=== PATIENT | male | born 1955 | race Caucasian/White ===

== ENCOUNTER 2017-10-17 11:34 | Emergency (ER) | payer BC, OTHER ==
[2017-10-17] MEDS ORDERED: Sodium Chloride 0.9% 1,000 ML IV ONE ×2 (11:56→14:42)
[2017-10-17] MEDS ORDERED: cefTRIAXone 2 GM Vial IVPUSH SCH (12:00)
[2017-10-17] MEDS ORDERED: Azithromycin 500 MG in Sodium Chloride 0.9% 250 ML IV SCH (12:00)
[2017-10-17] MEDS ORDERED: cefTRIAXone 2 GM in Sodium Chloride 0.9% 100 ML IV ONE (12:04)
--- NOTE | 2017-10-17 12:07 | EDM.PDOC ---
ED HPI GENERAL MEDICAL PROBLEM - General Chief Complaint: Respiratory Problem Stated Complaint: SENT BY CLINIC PNEUMONIA Time Seen by Provider: 10/17/17 11:45 Source of Information: Reports: Patient, Family (), Other ([facility] records from clinic visit this morning) History Limitations: Reports: No Limitations - History of Present Illness INITIAL COMMENTS - FREE TEXT/NARRATIVE: Greg is a pleasant 62yo male presents ambulatory with his today for 7 day hx of worsening cough, F/C/S, decreased appetite, headache and myalgias. He was seen at clinic 2 days ago, negative influenza screen at that time, treat symptomatically. Symptoms worsened Wednesday with worsening of SOB, cough, fatigue. He is taking ibuprofen which is helping with fevers/myalgias. He has no appetite. No sick contacts that he is aware of. He did not get flu shot this year, never had a PNA vaccine. He is a rancher, non-smoker. Review of [facility] records show temp of 100.4, HR 98, b/p 111/70 and O2sat of 91%. Labs done at 1043 this am show normal WBC at 7.3 with bandemia present, 12% bands, normal h&h and plt. Influenza screening done but not resulted. No other labs. CXR is pushed to our system showing bilateral pneumonia with large inflitrate to RML noted on lateral view. This is reviewed with Dr. Whitfield. O2Sats in ED are 89-90%. PCP is Dr. Rodriges with [facility]. Duration: Day(s): Location: Reports: Chest Quality: Reports: Other (sensation of SOB and heaviness) Improves with: Reports: Medication (ibuprofen) Worsens with: Reports: Breathing, Cold Therapy, Movement Associated Symptoms: Reports: Cough, cough w sputum (minimal), Diaphoresis, Fever/Chills, Headaches, Loss of Appetite, Malaise, Shortness of Breath, Weakness. Denies: Chest Pain, Nausea/Vomiting, Rash, Syncope Treatments [employer]: Reports: NSAIDS - Related Data Allergies Allergy/AdvReac Type Severity Reaction Status Date / Time No Known Allergies Allergy Verified 10/17/17 11:43 Home Meds: Home Meds [place]-3/DHA/Epa/Fish Oil [Fish Oil 500 MG Softgel] 1,000 mg PO DAILY 10/17/17 [ History] ED ROS GENERAL - Review of Systems Review Of Systems: See Below Constitutional: Reports: Fever, Chills, Malaise, Weakness, Fatigue, Diaphoresis , Decreased Appetite HEENT: Reports: Rhinitis, Throat Pain Respiratory: Reports: Shortness of Breath, Cough, Sputum (minimal). Denies: Wheezing, Pleuritic Chest Pain, Hemoptysis Cardiovascular: Reports: Dyspnea on Exertion (worsening since Wednesday). Denies: Chest Pain, Edema Endocrine: Reports: Fatigue GI/Abdominal: Reports: Decreased Appetite. Denies: Abdominal Pain, Constipation , Diarrhea, Nausea, Vomiting : Reports: No Symptoms Musculoskeletal: Reports: Other (teneralized myalgias) Skin: Denies: Rash Neurological: Reports: Headache. Denies: Confusion, Dizziness Psychiatric: Reports: No Symptoms Hematologic/Lymphatic: Reports: No Symptoms ED EXAM, GENERAL - Physical Exam Exam: See Below Exam Limited By: No Limitations General Appearance: Alert, WD/WN, No Apparent Distress, Other (appears generally fatigued and mildly ill in appearance) Eye Exam: Bilateral Eye: EOMI, PERRL Ears: Normal External Exam, Hearing Grossly Normal Nose: Normal Inspection Throat/Mouth: Normal Inspection, Normal Lips, Normal Teeth, Normal Voice, No Airway Compromise Head: Atraumatic, Normocephalic Neck: Normal Inspection, Other (mild AC LAD) Respiratory/Chest: Decreased Breath Sounds (bilateral mid to lower lobes), Other (poor insp effort- hurts with deep breaths). No: No Respiratory Distress , Crackles, Rales, Rhonchi, Wheezing, Accessory Muscle Use, Prolonged Expiration Cardiovascular: Normal Peripheral Pulses, Regular Rate, Rhythm, No Edema, No Murmur Peripheral Pulses: 2+: Radial (L), Radial (R), Posterior Tibial (L), Posterior Tibial (R) GI/Abdominal: Normal Bowel Sounds, Soft, Non-Tender. No: Guarding, Rigid, Rebound, Tender (Male) Exam: Deferred Rectal (Males) Exam: Deferred Extremities: Normal Inspection, Normal Capillary Refill Neurological: Alert, Oriented, CN II-XII Intact, Normal Cognition, No Motor/ Sensory Deficits Psychiatric: Normal Affect, Normal Mood Skin Exam: Warm, Dry, Intact, Other (warm to touch) Course - Vital Signs Text/Narrative:: during initial visit when patient not on oxygen, saturations were 88-89% on RA; 2L/NC applied with 96% saturations. Labs returned with sodium slightly low at 134, glucose at 128, total bili 1.5- rest of LFT's WNL. CRP is up at 28.8, Lactic acid 1.4 Mycoplasma returned negative, strep pneumo antigen is pending. Blood cultures pending, Resp viral panel pending Unfortunately med/surg unit is on diversion. Charge nurse did attempt to find bed placement for patient but no beds available. Reviewed this with patient and ; they are willing to be transferred to [place] for further treatment of bilat CAP with hypoxia. Call placed to [facility], Dr. Quintanilla is in agreement to accept patient for dx of CAP. Patient will be transferred via ambulance with supplemental oxygen and IVF running. IV abx of rocephin and zithromax given while in ED. Last Recorded V/S: Last Vital Signs Temp 98.0 F 10/17/17 11:40 Pulse 92 10/17/17 11:40 Resp 32 H 10/17/17 11:40 BP 122/71 10/17/17 11:40 Pulse Ox 95 10/17/17 15:06 - Orders/Labs/Meds Orders: Active Orders 24 hr Category Date Time Status RT Aerosol Therapy [RC] ASDIRECTED Care 10/17/17 12:11 Active RT Aerosol Therapy [RC] ASDIRECTED Care 10/17/17 15:06 Ordered CULTURE BLOOD [BC] Stat Lab 10/17/17 12:24 Received CULTURE BLOOD [BC] Stat Lab 10/17/17 12:40 Received RESPIRATORY PANEL BY PCR [MREF] Stat Lab 10/17/17 13:50 Received STREP PNEUMONIAE ANTIGEN [MREF] Stat Lab 10/17/17 13:35 Received Azithromycin [Zithromax] 500 mg Med 10/17/17 12:00 Active Sodium Chloride 0.9% [Normal Saline] 250 ml IV Q24H Sodium Chloride 0.9% [Normal Saline] 1,000 ml Med 10/17/17 14:42 Active IV ONETIME cefTRIAXone [Rocephin] 2 gm Med 10/17/17 12:15 Active Sodium Chloride 0.9% [Normal Saline] 100 ml IV ONETIME Blood Culture x2 Reflex Set [OM.PC] Stat Oth 10/17/17 11:57 Ordered Medication Orders Azithromycin 500 mg/ Sodium (Chloride) 250 mls @ 250 mls/hr IV Q24H CASSIE Last Admin: 10/17/17 13:31 Dose: 250 mls/hr Ceftriaxone Sodium 2 gm/ (Sodium Chloride) 100 mls @ 200 mls/hr IV ONETIME CASSIE Last Admin: 10/17/17 12:45 Dose: 200 mls/hr Sodium Chloride (Normal Saline) 1,000 mls @ 999 mls/hr IV ONETIME ONE Stop: 10/17/17 15:42 Last Admin: 10/17/17 14:49 Dose: 999 mls/hr Labs: Laboratory Tests 10/17/17 10/17/17 Range/Units 12:13 12:13 Sodium 134 L (136-145) mEq/L Potassium 4.3 (3.5-5.1) mEq/L Chloride 98 (98-107) mEq/L Carbon Dioxide 26 (21-32) mEq/L Anion Gap 14.3 (5-15) BUN 15 (7-18) mg/dL Creatinine 1.0 (0.7-1.3) mg/dL Est Cr Clr Drug Dosing 85.14 mL/min Estimated GFR (MDRD) > 60 (>60) mL/min BUN/Creatinine Ratio 15.0 (14-18) Glucose 128 H (80-115) mg/dL Lactic Acid 1.4 (0.4-2.0) mmol/L Calcium 9.1 (8.5-10.1) mg/dL Total Bilirubin 1.5 H (0.2-1.0) mg/dL AST 18 (15-37) U/L ALT 20 (16-63) U/L Alkaline Phosphatase 58 (46-116) U/L C-Reactive Protein 28.8 H* (<1.0) mg/dL Total Protein 6.7 (6.4-8.2) g/dl Albumin 2.8 L (3.4-5.0) g/dl Globulin 3.9 gm/dL Albumin/Globulin Ratio 0.7 L (1-2) Mycoplasma pneumon IgM Negative (NEGATIVE) Meds: Medications Generic Name Dose Route Start Last Admin Trade Name Freq PRN Reason Stop Dose Admin Azithromycin 500 mg/ Sodium 250 mls @ 250 mls/hr 10/17/17 12:00 10/17/17 13: 31 Chloride IV 250 mls/hr Q24H CASSIE Administration Ceftriaxone Sodium 2 gm/ 100 mls @ 200 mls/hr 10/17/17 12:15 10/17/17 12:45 Sodium Chloride IV 200 mls/hr ONETIME CASSIE Administration Sodium Chloride 1,000 mls @ 999 mls/hr 10/17/17 14:42 10/17/17 14:49 Normal Saline IV 10/17/17 15:42 999 mls/hr ONETIME ONE Administration Discontinued Medications Generic Name Dose Route Start Last Admin Trade Name Daniel PRN Reason Stop Dose Admin Acetaminophen 650 mg 10/17/17 15:05 10/17/17 15:23 Tylenol PO 10/17/17 15:06 650 mg NOW ONE Administration Albuterol 2.5 mg 10/17/17 12:11 10/17/17 12:20 Proventil Neb Soln NEB 10/17/17 12:12 2.5 mg ONETIME ONE Administration Albuterol 2.5 mg 10/17/17 15:06 10/17/17 15:27 Proventil Neb Soln NEB 10/17/17 15:07 2.5 mg ONETIME ONE Administration Ceftriaxone Sodium 2 gm 10/17/17 12:00 10/17/17 12:04 Rocephin IVPUSH Not Given Q24H CASSIE Guaifenesin 1,200 mg 10/17/17 15:09 10/17/17 15:25 Mucinex PO 10/17/17 15:10 1,200 mg ONETIME ONE Administration Sodium Chloride 1,000 mls @ 999 mls/hr 10/17/17 11:56 10/17/17 12:45 Normal Saline IV 10/17/17 12:56 999 mls/hr ONETIME ONE Administration Ceftriaxone Sodium 2 gm/ 100 mls @ 200 mls/hr 10/17/17 12:04 10/17/17 12:48 Sodium Chloride IV 10/17/17 12:33 Not Given ONETIME ONE Sodium Chloride Confirm 10/17/17 12:16 10/17/17 12:46 Normal Saline Administered 10/17/17 12:17 Not Given Dose 100 mls @ as directed .ROUTE .STK-MED ONE Departure - Departure Time of Disposition: 15:36 Disposition: DC/Tfer to Acute Hospital 02 Condition: Good Clinical Impression: Community acquired pneumonia Qualifiers: Laterality: right Lung location: lower lobe of lung Qualified Code(s): J18.1 - Lobar pneumonia, unspecified organism Pneumonia Qualifiers: Pneumonia type: due to unspecified organism Laterality: bilateral Lung location : lower lobe of lung Qualified Code(s): J18.9 - Pneumonia, unspecified organism - Discharge Information Referrals: Frank Phillips MD [Primary Care Provider] - Forms: ED Department Discharge - My Orders Last 24 Hours: My Active Orders 10/17/17 11:57 Blood Culture x2 Reflex Set [OM.PC] Stat 10/17/17 12:00 Azithromycin [Zithromax] 500 mg Sodium Chloride 0.9% [Normal Saline] 250 ml IV Q24H 10/17/17 12:11 RT Aerosol Therapy [RC] ASDIRECTED 10/17/17 12:15 cefTRIAXone [Rocephin] 2 gm Sodium Chloride 0.9% [Normal Saline] 100 ml IV ONETIME 10/17/17 12:24 CULTURE BLOOD [BC] Stat 10/17/17 12:40 CULTURE BLOOD [BC] Stat 10/17/17 13:35 STREP PNEUMONIAE ANTIGEN [MREF] Stat 10/17/17 13:50 RESPIRATORY PANEL BY PCR [MREF] Stat 10/17/17 14:42 Sodium Chloride 0.9% [Normal Saline] 1,000 ml IV ONETIME 10/17/17 15:06 RT Aerosol Therapy [RC] ASDIRECTED - Assessment/Plan Last 24 Hours: My Active Orders 10/17/17 11:57 Blood Culture x2 Reflex Set [OM.PC] Stat 10/17/17 12:00 Azithromycin [Zithromax] 500 mg Sodium Chloride 0.9% [Normal Saline] 250 ml IV Q24H 10/17/17 12:11 RT Aerosol Therapy [RC] ASDIRECTED 10/17/17 12:15 cefTRIAXone [Rocephin] 2 gm Sodium Chloride 0.9% [Normal Saline] 100 ml IV ONETIME 10/17/17 12:24 CULTURE BLOOD [BC] Stat 10/17/17 12:40 CULTURE BLOOD [BC] Stat 10/17/17 13:35 STREP PNEUMONIAE ANTIGEN [MREF] Stat 10/17/17 13:50 RESPIRATORY PANEL BY PCR [MREF] Stat 10/17/17 14:42 Sodium Chloride 0.9% [Normal Saline] 1,000 ml IV ONETIME 10/17/17 15:06 RT Aerosol Therapy [RC] ASDIRECTED
[2017-10-17] MEDS ORDERED: Albuterol 0.083% 2.5 MG/3 ML Neb Soln NEB ONE ×2 (12:11→15:06)
[2017-10-17] MEDS ORDERED: cefTRIAXone 2 GM in Sodium Chloride 0.9% 100 ML IV SCH (12:15)
[2017-10-17] MEDS ORDERED: Sodium Chloride 0.9% 100 ML ONE (12:16)
[2017-10-17] MEDS ORDERED: Acetaminophen 325 MG Tab PO ONE (15:05)
[2017-10-17] MEDS ORDERED: guaiFENesin 600 MG Tab.ER PO ONE (15:09)
[2017-10-17] MEDS ORDERED: Sodium Chloride 0.9% 1,000 ML ONE (15:55)
== END 2017-10-17 15:55 ==
LOC: JD.ED 11:34
DX: J18.9 Pneumonia, unspecified organism (principal); Z79.899 Other long term (current) drug therapy
CPT/HCPCS: 36415; 80053; 83605; 86140; 86738; 87040; 87070; 87205; 87486; 87581; 87633; 87798; 87899; 94640; 96365; 96366; 96368; 99285; A9270; J0456; J0696; J7030; J7040; J7050; 87077; 87184; 96361

== ENCOUNTER 2023-08-04 06:15 | Day surgery (SDC) | payer MEDICARE, BC ==
[~2023-08-04 06:15] MED LIST: Lactated Ringers 1,000 ML IV SCH; Morphine 8 MG, EPINEPHrine 0.3 MG, Cefuroxime 750 MG, Ketorolac 30 MG, Sodium Chloride ... PRN; Sodium Chloride 0.9% 10 ML Syringe FLUSH PRN; Sodium Chloride 0.9% 10 ML Syringe FLUSH SCH
[2023-08-04] MEDS ORDERED: Propofol 200 MG/20 ML SDV ONE ×3 (06:41→09:11)
[2023-08-04] MEDS ORDERED: Midazolam 1 MG/ML 2 ML SDV ONE (06:44)
[2023-08-04] MEDS ORDERED: Tranexamic Acid 1,000 MG/10 ML Vial ONE (06:47)
[2023-08-04] MEDS ORDERED: Vancomycin 1 GM SDV ONE (06:47)
[2023-08-04] MEDS ORDERED: dexmedeTOMIDine HCl 200 MCG/2 ML SDV ONE (06:59)
[2023-08-04] MEDS ORDERED: Ropivacaine 0.5% 5 MG/ML 30 ML SDV ONE (06:59)
[2023-08-04] MEDS ORDERED: Dexamethasone 4 MG/ML 5 ML MDV ONE (07:02)
[2023-08-04] MEDS ORDERED: EPINEPHrine 1 MG/ML SDV ONE (07:03)
[2023-08-04] MEDS ORDERED: ePHEDrine 50 MG/ML SDV ONE (08:15)
[2023-08-04] MEDS ORDERED: ceFAZolin 2 GM Vial ONE (08:16)
[2023-08-04] MEDS ORDERED: Lidocaine 1% 2 ML ONE (08:16)
[2023-08-04] MEDS ORDERED: HYDROmorphone 0.5 MG/0.5 ML Syringe IVPUSH PRN (08:28)
[2023-08-04] MEDS ORDERED: fentaNYL 100 MCG/2 ML SDV IVPUSH PRN (08:28)
[2023-08-04] MEDS ORDERED: oxyCODONE 5 MG Tab PO SCH (10:22)
[2023-08-04] MEDS ORDERED: Cyclobenzaprine 10 MG Tab PO PRN (10:22)
== END 2023-08-04 12:47 | disposition home or self-care (01) ==
LOC: JD.SDS 06:15
PROVIDERS: ATTEND Orthopaedic Surgery
DX: M17.11 Unilateral primary osteoarthritis, right knee (principal); E78.2 Mixed hyperlipidemia; Z87.891 Personal history of nicotine dependence; Z79.82 Long term (current) use of aspirin; Z79.899 Other long term (current) drug therapy
CPT/HCPCS: 0055T; 27447; 64447; 73560; 97116; 97161; A9270; C1713; C1776; J0171; J0690; J0697; J1100; J1885; J2250; J2270; J2704; J2795; J3370; J7030; J7120; 01402; J3490